=== PATIENT | female | born 1940 | race Two or more races ===

== ENCOUNTER → 2022-05-29 | Outpatient (CLI) | payer OTHER | END | disposition home or self-care (01) | LOC: SONOGRAMA 15:29 | PROVIDERS: ATTEND Pathology Anatomic Pathology & Clinical Pathology | DX: E04.8 Other specified nontoxic goiter (principal); E07.9 Disorder of thyroid, unspecified ==

== ENCOUNTER → 2024-09-01 | Emergency (ER) | payer OTHER ==
[~2024-09-01] VITALS: Ht 162.6 cm; Wt 81.6 kg
[~2024-09-01] MED LIST: COZAAR50 MG; LASIX20 MG; LISINOPRIL2.5 MG; NEURONTIN300 MG
[2024-09-01 19:58] VITALS: BP 151/77; O2SAT 97
== END | disposition left against medical advice (07) ==
LOC: ER 16:45
DX: Z53.21 Procedure and treatment not carried out due to patient leaving prior to being seen by health care provider (principal)